=== PATIENT | female | born 1935 | race Caucasian/White ===

== ENCOUNTER → 2016-06-10 | Outpatient (CLI) | payer MEDICARE, OTHER ==
[~2016-06-10] MED LIST: ALLERGY INJECTION IM; BONI150T PO; COUM5TAB PO; OXYC-360 PO; WARF2.5 PO
[2016-06-10 13:42] LABS: HDL CHOLESTEROL 65.2 MG/DL (40.0-60.0); INDIRECT BILIRUBIN 0.5 MG/DL (0.0-0.8); TOTAL BILIRUBIN ADULT 0.6 MG/DL (0.2-1.0)
== END ==
LOC: PLAB 10:25
PROVIDERS: ATTEND Family Medicine
DX: R07.89 Other chest pain (principal); I65.23 Occlusion and stenosis of bilateral carotid arteries
CPT/HCPCS: 36415; 80061; 80076

== ENCOUNTER → 2017-01-09 | Outpatient (CLI) | payer MEDICARE, OTHER ==
[2017-01-09 13:12] LABS: AUTOMATED NEUTROPHIL # 3.8 TH/MM3 (1.8-7.7); BASOPHIL % 0.8 % (0.0-2.0); EOSINOPHIL # 0.1 TH/MM3 (0-0.4); EOSINOPHIL % 2.5 % (0.0-4.0); HEMATOCRIT 44.5 % (35.0-46.0); HEMO FLAGS DIFF FINAL; LYMPH % 20.7 % (9.0-44.0); LYMPHOCYTE # 1.1 TH/MM3 (1.0-4.8); MEAN CELL VOLUME 90.1 FL (80.0-100.0); MEAN CORPUSCULAR HEMOGLOBIN 30.2 PG (27.0-34.0); MEAN CORPUSCULAR HGB CONC 33.5 % (32.0-36.0); MONO % 7.4 % (0.0-8.0); NEUT % 68.6 % (16.0-70.0); PLATELET COUNT 238 TH/MM3 (150-450); RED BLOOD COUNT 4.93 MIL/MM3 (4.00-5.30); RED CELL DISTRIBUTION WIDTH 14.7 % (11.6-17.2); WHITE BLOOD COUNT 5.5 TH/MM3 (4.0-11.0)
[2017-01-09 13:41] LABS: ANION GAP 5 MEQ/L (5-15); AST (GOT) 20 U/L (15-37); BICARBONATE 28.7 MEQ/L (21.0-32.0); BLOOD UREA NITROGEN 14 MG/DL (7-18); CHLORIDE 106 MEQ/L (98-107); GLOMERULAR FILTRATION RATE 71 ML/MIN (>89); GLUCOSE,FASTING 102 MG/DL (74-99); POTASSIUM 4.5 MEQ/L (3.5-5.1); SODIUM (NA) 140 MEQ/L (136-145)
[2017-01-09 14:08] LABS: ALKALINE PHOSPHATASE 75 U/L (45-117); ALT (GPT) 17 U/L (10-53); HDL CHOLESTEROL 59.3 MG/DL (40.0-60.0); LDL CHOLESTEROL 124 MG/DL (0-99); TOTAL BILIRUBIN ADULT 0.6 MG/DL (0.2-1.0)
== END ==
LOC: PLAB 10:03
PROVIDERS: ATTEND Family Medicine
DX: R13.10 Dysphagia, unspecified (principal); R07.89 Other chest pain; I65.23 Occlusion and stenosis of bilateral carotid arteries; R53.82 Chronic fatigue, unspecified; Z68.33 Body mass index [BMI] 33.0-33.9, adult
CPT/HCPCS: 36415; 80053; 80061; 82306; 82607; 83090; 83921; 84443; 85025